=== PATIENT | female | born 1965 | race Caucasian/White ===

== ENCOUNTER → 2018-03-17 11:39 | Outpatient (CLI) | payer BC, SELFPAY ==
--- NOTE | 2018-03-17 11:43 | XR_ITS ---
XR ankle wt bearing RT min 3V HISTORY: Right ankle pain ORDERING PHYSICIAN: Kylie Connelly DPM PATIENT AGE: 52 years COMPARISON: None FINDINGS: No fracture or dislocation. No lytic or blastic change. There is normal mineralization.. The joint spaces are well-preserved. No significant degenerative/arthritic changes. No erosive changes evident. IMPRESSION: Negative ankle, no acute finding
--- NOTE | 2018-03-17 11:43 | XR_ITS ---
XR ankle wt bearing LT min 3V HISTORY: Ankle pain ORDERING PHYSICIAN: Kylie Connelly DPM PATIENT AGE: 52 years COMPARISON: None FINDINGS: No fracture or dislocation. No lytic or blastic change. There is normal mineralization.. The joint spaces are well-preserved. No significant degenerative/arthritic changes. No erosive changes evident. IMPRESSION: Negative ankle, no acute finding
--- NOTE | 2018-03-17 11:43 | XR_ITS ---
XR foot wt bearing RT 3V HISTORY: Anterior right foot pain ORDERING PHYSICIAN: Kylie Connelly DPM PATIENT AGE: 52 years FINDINGS: There are osteoarthritic changes of the first metatarsophalangeal joint with spurring. Spurring is also present dorsally at the navicular cuneiform joint. No fracture or dislocation. There is mild pes planus. No lytic or blastic change. 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
--- NOTE | 2018-03-17 11:43 | XR_ITS ---
XR foot wt bearing LT 3V HISTORY: Injury of foot pain ORDERING PHYSICIAN: Kylie Connelly DPM PATIENT AGE: 52 years COMPARISON: None FINDINGS: No fracture or dislocation. No lytic or blastic change. There is normal mineralization.. The joint spaces are well-preserved. No significant degenerative/arthritic changes. No erosive changes evident. Mild hypertrophic changes are present along the dorsal aspect of the navicular cuneiform joint. Small calcaneal spur. IMPRESSION: 1. No acute finding. 2. Small calcaneal spur with minimal hypertrophic change along the anterior the navicular cuneiform joint
== END ==
PROVIDERS: Visit Provider Podiatrist
DX: M79.672 Pain in left foot (principal); M79.671 Pain in right foot
CPT/HCPCS: 73610; 73630

== ENCOUNTER 2020-12-13 17:37 | Emergency (ER) | payer BC, SELFPAY ==
[2020-12-13 17:50] VITALS: BP 127/91; PULSE 104; RESP 20; TEMP 36.6; O2SAT 98; BMI 30.1
[2020-12-13 18:02] VITALS: BP 127/91; PULSE 104; RESP 20; TEMP 36.6; O2SAT 98
--- NOTE | 2020-12-13 18:07 | HMH.EDUTC ---
[facility] [place] Disposition Clinical Impression: Exposure to COVID-19 virus Disposition: Home, Self-Care Condition on Discharge: Good Instructions: Preventing the Spread of Coronavirus Discharge Instructions Referrals: Xavier Chambers [Primary Care Provider] - Time of Disposition: 18:08 Medical Decision Making - Francesco Inquiry Pt receiving controlled substance: No Vital Signs: 12/13/20 17:50 12/13/20 18:02 Temperature 97.8 F 97.8 F Temperature Source Oral Pulse Rate 104 H Pulse Rate [Right Brachial] 104 H Respiratory Rate 20 20 Blood Pressure 127/91 H Blood Pressure [Right Arm] 127/91 H Blood Pressure Mean [Right Arm] 103 Blood Pressure Source [Right Arm] Automatic Cuff Blood Pressure Position [Right Arm] Sitting 02 Sat by Pulse Oximetry 98 Oxygen Delivery Method Room Air Orders (Tests/Meds): ORDERS Category Date Time Status Covid-19 Nasal PCR ([facility]) Routine Lab 12/13/20 17:50 Received [facility] [place] HPI - General Stated complaint: Wants Covid test,have been exposed Time Seen by Provider: 12/13/20 18:07 Mode of Arrival: Ambulatory Source of Information: Patient Limitations: No Limitations Description of Symptoms (Recalled from Triage Doc. by RN): COVID TEST D/T EXPOSURE. DENIES SYMPTOMS HEENT Symptoms (Recalled from RN notes): No Resp Symptoms (Recalled from RN notes): No Skin Symptoms (Recalled from RN notes): No MS Symptoms (Recalled from RN notes): No Functional Status (Recalled from RN notes): WNL - History of Present Illness Provider Complaint: Exposed to COVID 7 days ago. Needs COVID test. No symptoms except mild runny nose. Onset (ago): day(s) (7) Relieving factors: none Exacerbating factors: none Associated symptoms: denies other symptoms Treatments prior to arrival: none - Related Data Home Medications Medication Instructions Recorded Confirmed bupropion HCl 150 mg tablet,12 hr 150 mg PO BID 03/17/18 sustained-release raloxifene 60 mg tablet 60 mg PO ONCE 03/17/18 Allergies Allergy/AdvReac Type Severity Reaction Status Date / Time No Known Allergies Allergy Verified 12/13/20 18:02 - Worker's Comp Is this a Worker's Comp case?: No Is this an [facility] Worker's Comp?: No [facility] History - Hepatitis A Screen Drug use history?: No High risk sexual behaviors?: No History of sexually transmitted infection?: No Currently employed?: No Childcare worker?: No Do you have indoor plumbing?: Yes Do you have electricity?: Yes Attestation statement:: This patient has been screened for Hepatitis A risk factors. I have reviewed the patient's past medical history: Yes Medical History: Denies:: Asthma, Cancer, Chronic Obstructive Pulmonary Disease (COPD), Diabetes Mellitus Type 1, Diabetes Mellitus Type 2, Hyperlipidemia, Hypertension Other Surgeries: Yes: Colonoscopy, Hysterectomy-Total (2009) - Social History Smoking Status: Never smoker # Packs/Day (cigarettes): 0 #Yrs smoked (if former smoker): 0 Alcohol Intake: never Alcohol Intake Frequency:: other Substance Use Type: denies use Occupational Status: other Family Hx:: Cancer, Diabetes, Hypertension ROS Obtained: Yes All systems reviewed & no additional complaints Physical Exam - General General appearance: alert, in no apparent distress - Head Head exam: normocephalic - Eye Eye exam: Present: PERRL - Respiratory Respiratory exam: Present: normal lung sounds bilaterally - Cardiovascular Cardiovascular exam: Present: regular rate, normal rhythm - Neurological Exam Neurological exam: Present: alert, oriented X3 - Psychiatric Psychiatric exam: Present: normal affect, normal mood - Skin Skin exam: Present: warm, dry, intact
--- NOTE | 2020-12-13 23:13 | PC.NURSE ---
Positive COVID result called from lab, Dr Carlos notified and results placed in UTC for f/u in AM
--- NOTE | 2020-12-14 09:23 | PC.NURSE ---
pt notified of positive covid result
== END 2020-12-13 18:13 | disposition home or self-care (01) ==
PROVIDERS: Emergency Provider Physician Assistant; PCP Internal Medicine
DX: U07.1 COVID-19 (principal)
CPT/HCPCS: 99202; G0463; U0003

== ENCOUNTER 2021-07-23 10:12 | Emergency (ER) | payer BC, SELFPAY ==
[2021-07-23 12:06] VITALS: PULSE 76; RESP 18; TEMP 36.9; O2SAT 98; BMI 29.2
[2021-07-23 12:16] VITALS: BP 121/88; PULSE 76; RESP 18; TEMP 36.9
--- NOTE | 2021-07-23 12:30 | HMH.EDUTC ---
[facility] [place] Clinical Impression: Exposure to COVID-19 virus Disposition: Home, Self-Care Condition on Discharge: Good Instructions: DI for COVID-19 (Suspected or Confirmed ), Preventing the Spread of Coronavirus Discharge Instructions Additional Instructions: Drink plenty of fluids. Take tylenol for pain or fever. Return if you begin to have difficulty breathing. Follow up with your regular doctor. GO TO THE ER FOR ANY WORSENING SYMPTOMS Quarantine until you know the results of your covid-19 test. If it is positive, the health department should call you and give you further instructions about your length of Quarantine and other things. Notify your school or workplace of your results and follow their instructions regarding return to work/school. Referrals: Xavier Chambers [Primary Care Provider] - Time of Disposition: 12:30 Medical Decision Making - Medical Records Medical records reviewed: No: I reviewed the patient's medical records. - Francesco Inquiry Pt receiving controlled substance: No Vital Signs: 07/23/21 12:06 07/23/21 12:16 Temperature 98.5 F 98.5 F Temperature Source Oral Pulse Rate 76 Pulse Rate [Left] 76 Respiratory Rate 18 18 Blood Pressure 121/88 02 Sat by Pulse Oximetry 98 [facility] [place] HPI - General Stated complaint: covid test/symptoms Time Seen by Provider: 07/23/21 12:15 Mode of Arrival: Ambulatory Source of Information: Patient Limitations: No Limitations Description of Symptoms (Recalled from Triage Doc. by RN): COVID TEST. ASYMPTOMATIC. UNKNOWN EXPOSURE. HEENT Symptoms (Recalled from RN notes): No Resp Symptoms (Recalled from RN notes): No Skin Symptoms (Recalled from RN notes): No MS Symptoms (Recalled from RN notes): No Functional Status (Recalled from RN notes): NA - History of Present Illness Provider Complaint: She is here needing a covid test. She denies any symptoms so far. - Related Data Home Medications Medication Instructions Recorded Confirmed bupropion HCl 150 mg tablet,12 hr 150 mg PO BID 03/17/18 sustained-release raloxifene 60 mg tablet 60 mg PO ONCE 03/17/18 Allergies Allergy/AdvReac Type Severity Reaction Status Date / Time No Known Allergies Allergy Verified 12/13/20 18:02 - Worker's Comp Is this a Worker's Comp case?: No [facility] History - Hepatitis A Screen Drug use history?: No High risk sexual behaviors?: No History of sexually transmitted infection?: No Currently employed?: No Childcare worker?: No Do you have indoor plumbing?: Yes Do you have electricity?: Yes Attestation statement:: This patient has been screened for Hepatitis A risk factors. I have reviewed the patient's past medical history: Yes Medical History: Denies:: Asthma, Cancer, Chronic Obstructive Pulmonary Disease (COPD), Diabetes Mellitus Type 1, Diabetes Mellitus Type 2, Hyperlipidemia, Hypertension Other Surgeries: Yes: Colonoscopy, Hysterectomy-Total (2009) - Social History Smoking Status: Never smoker # Packs/Day (cigarettes): 0 #Yrs smoked (if former smoker): 0 Alcohol Intake: never Alcohol Intake Frequency:: other Substance Use Type: denies use Occupational Status: other Family Hx:: Cancer, Diabetes, Hypertension ROS Obtained: Yes All systems reviewed & no additional complaints - Constitutional Constitutional: Reports system reviewed and no additional complaints, except as docu - Eyes Eyes: Reports system reviewed and no additional complaints, except as docu - ENT Ears, Nose, Mouth, and Throat: Reports system reviewed and no additional complaints, except as docu - Cardiovascular Cardiovascular: Reports system reviewed and no additional complaints, except as docu - Respiratory Respiratory: Reports system reviewed and no additional complaints, except as docu - Gastrointestinal Gastrointestingal: Reports: system reviewed and no additional complaints, except as docu Physical Exam - General General appearance: al
== END 2021-07-23 12:44 | disposition home or self-care (01) ==
PROVIDERS: Emergency Provider Nurse Practitioner Family; PCP Internal Medicine
DX: Z20.822 Contact with and (suspected) exposure to COVID-19 (principal)
CPT/HCPCS: 99202; G0463; U0003

== ENCOUNTER → 2021-12-07 10:22 | Outpatient (CLI) | payer BC, SELFPAY | PROVIDERS: PCP Internal Medicine; Visit Provider Internal Medicine | DX: Z20.822 Contact with and (suspected) exposure to COVID-19 (principal) | CPT/HCPCS: C9803; U0003; U0005 ==

== ENCOUNTER → 2021-12-08 11:18 | Outpatient (CLI) | payer BC, SELFPAY ==
--- NOTE | 2021-12-08 11:34 | XR_ITS ---
FINAL REPORT CLINICAL HISTORY: RUQ PAIN, fever, chills FINDINGS: Chest: A single view of the chest demonstrates mild left lung base atelectasis or scarring. Abdomen: Flat and upright views of the abdomen demonstrate a nonobstructive bowel gas pattern. There is a moderate amount of retained stool. There is no free air. IMPRESSION: Moderate retained stool. Reviewed, Interpreted and Dictated by Michael Garcia III, MD Transcribed by Demetrius Sarkar Authenticated by Michael Garcia III, MD on 12/08/2021 12:28:[address] [facility]
[2021-12-08 12:10] LABS: Basophils # 0.1 K/mm3 (0-0.2); Basophils % 0.6 % (0.1-2.0); Eosinophils % 0.2 % (0.1-12.0); Hematocrit 34.3 % (37.0-47.0); Hemoglobin 10.9 g/dL (12.2-16.2); Lymphocytes % 11.4 % (10-50); Mean Corpuscular HGB Conc 31.7 g/dL (31.8-35.4); Mean Corpuscular Volume 88.5 fl (81-99); Monocytes # 0.5 K/mm3 (0.1-1.0); Neutrophils # 7.4 K/mm3 (1.8-7.8); Neutrophils % 81.8 % (37.0-80.0); Platelet Count 209 K/mm3 (142-424); Red Blood Count 3.88 M/mm3 (4.20-5.40); Red Cell Distribution Width 17.4 % (11.5-17.5)
[2021-12-08 12:17] LABS: Chloride 92 mmol/L (98-107); Sodium 135 mmol/L (136-145)
[2021-12-08 12:18] LABS: Potassium 3.2 mmoL/L (3.5-5.1)
[2021-12-08 12:20] LABS: Alanine Aminotransferase 14 U/L (12-78); Albumin Level 3.6 g/dl (3.5-5.0); Albumin/Globulin Ratio 1.3 (1.1-1.8); Alkaline Phosphatase 78 U/L (38-126); Anion Gap 12.2 mEq/L (5-15); Aspartate Amino Transferase 27 U/L (14-36); Bilirubin,Total 0.6 mg/dl (0.2-1.3); Blood Urea Nitrogen 17 mg/dl (7-17); Calcium 8.4 mg/dl (8.4-10.2); Carbon Dioxide 34 mmol/L (22.0-30.0); Estimated Glomerular Filt Rate 74 ml/min (>60); GFR (African American) 90 ML/MIN (>60); Globulin 2.8 g/dL (1.3-3.2); Glucose 90 mg/dl (74-100); Total Protein,Serum 6.4 g/dl (6.3-8.2)
[2021-12-08 12:21] LABS: Amylase < 30 U/L (30-110)
== END ==
PROVIDERS: Visit Provider Internal Medicine
DX: R10.11 Right upper quadrant pain (principal); R50.9 Fever, unspecified
CPT/HCPCS: 36415; 74021; 80053; 82150; 85025; 87275; 87276

== ENCOUNTER 2022-04-09 20:40 | Emergency (ER) | payer BC, SELFPAY ==
[2022-04-09 21:06] VITALS: BP 148/77; PULSE 108; RESP 19; TEMP 36.9; O2SAT 98; BMI 26.8
[2022-04-09 21:12] LABS: Apearance,Urine Clear (Clear); Bilirubin,Urine Negative (Negative); Blood, Urine 1+ (Negative); Color,Urine Yellow (Yellow); Glucose,Urine (UA) Negative (Negative); Ketones,Urine Negative (Negative); PH,Urine 7.5 (5.0-8.5); Protein,Urine Negative (Negative); UTC Leukocyte Esterase,Urine Trace (Negative); Urobilinogen,Urine 0.2 EU/dl (0.2)
[2022-04-09 21:13] LABS: UTC Nitrate,Urine Negative (Negative)
--- NOTE | 2022-04-09 21:20 | HMH.EDUTC ---
[facility] [place] Disposition Clinical Impression: Sinusitis Qualifiers: Sinusitis location: unspecified location Chronicity: unspecified Qualified Code(s): J32.9 - Chronic sinusitis, unspecified UTI (urinary tract infection) Qualifiers: Urinary tract infection type: site unspecified Hematuria presence: with hematuria Qualified Code(s): N39.0 - Urinary tract infection, site not specified Disposition: Home, Self-Care Condition on Discharge: Good Instructions: Sinusitis, DI for Sinusitis, DI for Urinary Tract Infection (UTI) Additional Instructions: *Increase fluids. Water not Soda or Tea *Start antibiotic immediately and be sure to take as ordered for the FULL length of time although you should start to see improvement over the next 48 hours *Be SURE to follow up anytime for new or worsening symptoms with your family doctor. AND in 48 hours for urine culture results with your family doctor, if you do not have a doctor then you may call back to the [facility] for urine culture results and further treatment. We do recommend that you choose and establish care with a Primary Care Physician. AND follow up with them in 10-14 days to repeat UA to ensure infection is resolved and blood no longer present *Be sure to let your PCP know that we sent urine cultures from the [facility] so they can follow up to ensure that you area the on the correct antibiotic Call your doctor office and make appointment for 48 hours (2 days from today) to follow up and get the results of your urine culture and further treatment *Monitor Temp, Over the counter Motrin or Tylenol as directed/as needed Tylenol every 4 hours and Motrin every 6 hours (as long as your family doctor has told you that you can take it) for fever or pain. and straight to ER if unable to lower temp less than 101.0 after medication given *Warm salt water gargles may help to soothe the throat *Throat Lozenges *Warm fluids like tea with honey may help to soothe the throat *Sleep elevated *Humidifier/Vaporizer Follow up IMMEDIATELY for new or worsening symptoms or no Noticeable improvement over the next 48-72 hours. 911 for difficulty breathing or swallowing Prescriptions: Cefdinir [Omnicef 300mg Capsule] 300 mg PO BID #20 cap Transmission Status: Received by [facility] Referrals: Xavier Chambers MD [Primary Care Provider] - As needed Time of Disposition: 21:35 Medical Decision Making - Francesco Inquiry Pt receiving controlled substance: No Francesco was queried for this patient: No Vital Signs: 04/09/22 21:06 Temperature 98.5 F Temperature Source Oral Pulse Rate [Left] 108 H Respiratory Rate 19 Blood Pressure [Right Arm] 148/77 H Blood Pressure Mean [Right Arm] 100 02 Sat by Pulse Oximetry 98 - Lab Data Lab results reviewed: Yes: I reviewed the patient's lab results. Lab Results 04/09/22 20:53: Urine Color Yellow, Urine Appearance Clear, Urine pH 7.5, Ur Specific Hamlet 1.020, Urine Protein Negative, Urine Glucose (UA) Negative, Urine Ketones Negative, Urine Blood 1+, Urine Nitrate Negative, Urine Bilirubin Negative, Urine Urobilinogen 0.2, Ur Leukocyte Esterase Trace Orders (Tests/Meds): ED MEDICATIONS Discontinued Medications Generic Name Dose Route Start Last Admin Trade Name Freq PRN Reason Stop Dose Admin Ceftriaxone Sodium 1 gm 04/09/22 21:37 04/09/22 21:38 Ceftriaxone 1gm Vial IM 04/09/22 21:38 1 gm ONCE ONE Administration Lidocaine HCl 0 ml 04/09/22 21:37 04/09/22 21:38 Lidocaine 1% 5ml Pf Vial IM 04/09/22 21:38 2 ml ONCE ONE Administration ORDERS Category Date Time Status Urine Culture Stat Micro 04/09/22 21:10 Ordered [facility] [place] HPI - General Stated complaint: poss UTI Time Seen by Provider: 04/09/22 21:20 Mode of Arrival: Ambulatory Source of Information: Patient Limitations: No Limitations Description of Symptoms (Recalled from Triage Doc. by RN): pt c/o a MAYFIELD, sore throat, cough, and pain. HEENT Symptoms (Recalled from R
[2022-04-09 21:43] VITALS: BP 148/77; PULSE 108; RESP 19; TEMP 36.9
== END 2022-04-09 21:45 | disposition home or self-care (01) ==
PROVIDERS: Emergency Provider Nurse Practitioner; PCP Internal Medicine
DX: J32.9 Chronic sinusitis, unspecified (principal); N39.0 Urinary tract infection, site not specified; J02.9 Acute pharyngitis, unspecified; R51.9 Headache, unspecified; Z82.49 Family history of ischemic heart disease and other diseases of the circulatory system; Z83.3 Family history of diabetes mellitus
CPT/HCPCS: 81003; 87086; 96372; 99213; G0463; J0696

== ENCOUNTER → 2022-05-13 16:34 | Outpatient (CLI) | payer BC, SELFPAY | PROVIDERS: PCP Internal Medicine; Visit Provider Internal Medicine | DX: U07.1 COVID-19 (principal) | CPT/HCPCS: C9803; U0003; U0005 ==

== ENCOUNTER 2023-11-11 16:28 | Emergency (ER) | payer BC, SELFPAY ==
[2023-11-11 16:50] VITALS: BP 101/60; PULSE 135; RESP 21; TEMP 37.8; O2SAT 96; BMI 26.2
--- NOTE | 2023-11-11 16:53 | EXP.UTC ---
Discharge Plan Disposition Patient Disposition: Home, Self-Care Condition: Good Prescriptions Prescriptions: New ondansetron 4 mg Tablet,Disintegrating 4 mg PO Q8H PRN (Reason: Nausea) Qty: 12 0RF phenazopyridine [Pyridium] 200 mg tablet 200 mg PO Q8H 2 Days Qty: 6 0RF cephalexin 500 mg capsule 500 mg PO QID 10 Days Qty: 40 0RF No Action bupropion HCl 150 mg tablet extended release 12 hr 150 mg PO BID raloxifene [Evista] 60 mg tablet 60 mg PO ONCE cefdinir 300 MG capsule 300 mg PO BID Qty: 20 0RF Referrals Follow up/Referrals: Xavier Chambers MD [Primary Care Provider] - See instructions Activity Restrictions/Add. Instructions Additional Instructions/Restrictions: Drink plenty of fluids. Take tylenol or ibuprofen for pain or fever. Take the medications as directed. Follow up with your regular doctor. GO TO THE ER FOR ANY WORSENING SYMPTOMS The pyridium will make your urine turn orange, this is an expected side effect. It will stain your clothes if it comes into contact with them. We will culture the urine. That will tell what bacteria is causing your infection and which antibiotics will treat it best. Sometimes the first antibiotic we prescribe turns out to not work against different bacteria. So, make sure you follow up within 3 days if you are not getting better. Clinical Impressions Clinical Impression: Strep throat, UTI (urinary tract infection) Instructions Patient Instructions: DI for Strep Throat, DI for Urinary Tract Infection (UTI) Discharge ED Provider: Waldo Gonzalez [facility] General Stated complaint: poss UTI, back pain, [place] Time Seen by Provider: 11/11/23 16:53 History of Present Illness Provider Complaint: She states that for the past 2 days she has been having a worsening sore throat. She also has been having dysuria and low back pain for the past 1 day. Related Data Home Medications Medication Instructions Recorded Confirmed bupropion HCl 150 mg tablet,12 hr 150 mg PO BID 03/17/18 11/11/23 sustained-release raloxifene 60 mg tablet (Evista) 60 mg PO ONCE 03/17/18 11/11/23 Previous Rx's Medication Instructions Recorded cefdinir 300 mg capsule 300 mg PO BID #20 caps 04/09/22 cephalexin 500 mg capsule 500 mg PO QID 10 days #40 caps 11/11/23 ondansetron 4 mg disintegrating 4 mg PO Q8H PRN Nausea #12 tabs 11/11/23 tablet phenazopyridine 200 mg tablet 200 mg PO Q8H 2 days #6 tabs 11/11/23 (Pyridium) Allergies Allergy/AdvReac Type Severity Reaction Status Date / Time No Known Allergies Allergy Verified 12/13/20 18:02 [facility] Disclaimer: The information contained in this section may have been updated after the patient was seen, as this information can be updated by other users. Medical History (Updated 11/11/23 @ 17:26 by Waldo Gonzalez APRN) Depression History of anemia Kidney stone Urinary tract infection Surgical History (Updated 11/11/23 @ 17:10 by Rhonda Alves RN) History of hysterectomy History of tubal ligation Social History Smoking Status: Never smoker alcohol intake: never substance use type: denies use current occupational status: other Travel in the last 8 weeks: None ROS Obtained: Yes All systems reviewed & no additional complaints except as documented Constitutional Constitutional: Reports poor appetite Eyes Eyes: Reports system reviewed and no additional complaints, except as documented ENT Ears, Nose, Mouth, and Throat: Reports as per HPI Cardiovascular Cardiovascular: Reports system reviewed and no additional complaints, except as documented and Denies chest pain Respiratory Respiratory: Denies shortness of breath, Denies chest congestion, Reports cough, Denies stridor and Denies wheezing Gastrointestinal Gastrointestingal: Reports system reviewed and no additional complaints, except as documented; Denies abdominal pain, diarrhea or vomiting Genitourinary Fema
[2023-11-11 17:04] LABS: UTC Influenza A Antigen Negative (Negative); UTC Influenza B Antigen Negative (Negative); UTC Strep Screen (Rapid) Positive (Negative)
[2023-11-11 17:45] VITALS: BP 101/60; PULSE 135; RESP 21; TEMP 37.8; O2SAT 96
[2023-11-11 18:53] LABS: Apearance,Urine Clear (Clear); Bilirubin,Urine Negative (Negative); Blood, Urine Negative (Negative); Color,Urine Dark Yellow (Yellow); Glucose,Urine (UA) Negative (Negative); Ketones,Urine Negative (Negative); PH,Urine 5.5 (5.0-8.5); Protein,Urine Negative (Negative); Specific Gravity, Urine >= 1.030 (1.005-1.030); UTC Leukocyte Esterase,Urine 1+ (Negative); UTC Nitrate,Urine Negative (Negative); Urobilinogen,Urine 0.2 EU/dl (0.2)
== END 2023-11-11 17:48 | disposition home or self-care (01) ==
PROVIDERS: Emergency Provider Nurse Practitioner Family; PCP Internal Medicine
DX: J02.0 Streptococcal pharyngitis (principal); N39.0 Urinary tract infection, site not specified; B96.89 Other specified bacterial agents as the cause of diseases classified elsewhere; R07.0 Pain in throat; M54.59 Other low back pain; R51.9 Headache, unspecified
CPT/HCPCS: 81003; 87086; 87635; 87804; 87880; 96372; 99212; 99214; G0463; J0696

== ENCOUNTER 2023-12-20 12:03 | Outpatient (CLI) | payer BC, SELFPAY ==
[2023-12-24 00:05] LABS: Atopobium vaginae Low - 0 Score (.); BVAB2 Low - 0 Score (.); Candida albicans NAA Negative (Negative); Candida glabrata Negative (Negative); Chlamydia Trachomatis NAA Negative (Negative); HSV 1 NAA Negative (Negative); HSV 2 NAA Negative (Negative); Megasphaera 1 Low - 0 Score (.); Neisseria gonorrhoeae NAA Negative (Negative); Trich vag NAA Negative (Negative)
[2023-12-28 10:31] LABS: Atopobium vaginae 0
[2023-12-28 10:32] LABS: Bacterial Vaginosis Associated 0; Candida albicans, NAA 0; Candida glabrata, NAA 0; Megasphaera 1 0
[2023-12-28 22:11] LABS: Mycoplasma genitalium NAA Negative (Negative); Mycoplasma hominis NAA Negative (Negative); Ureaplasma spp NAA Negative (Negative)
== END 2023-12-20 23:59 ==
LOC: LAB.DROPOF 12:03
PROVIDERS: PCP Internal Medicine; Visit Provider Urology
DX: N94.19 Other specified dyspareunia (principal)
CPT/HCPCS: 87491; 87529; 87563; 87591; 87661; 87798; 87801

== ENCOUNTER 2023-12-24 14:15 | Outpatient (CLI) | payer BC, SELFPAY ==
--- NOTE | 2023-12-24 14:15 | XR_ITS ---
FINAL REPORT CLINICAL HISTORY: UTI COMPARISON: 12/08/2021 FINDINGS: The visualized intestinal gas pattern appears unremarkable without evidence to suggest obstruction. No abnormal radiopacities are seen in the abdomen. IMPRESSION: No acute findings. Reviewed, Interpreted and Dictated by Jan Moody MD Transcribed by Marianna Moctezuma Authenticated and [facility]
--- NOTE | 2023-12-24 14:15 | US_ITS ---
FINAL REPORT TECHNIQUE: Ultrasound images of the kidneys and bladder were obtained. CLINICAL HISTORY: . FINDINGS: The right kidney measures 10.5 cm in length. It is normal in echogenicity. There is no hydronephrosis. The left kidney measures 11.3 cm in length. It is normal in echogenicity. There is no hydronephrosis. IMPRESSION: Unremarkable renal ultrasound. Reviewed, Interpreted and Dictated by Jan Moody MD Transcribed by Marianna Moctezuma Authenticated and . [facility]
== END 2023-12-24 23:59 ==
LOC: RAD 14:15
PROVIDERS: PCP Internal Medicine; Visit Provider Urology
DX: N39.0 Urinary tract infection, site not specified (principal)
CPT/HCPCS: 74018; 76770

== ENCOUNTER 2024-01-10 16:22 | Outpatient (CLI) | payer BC, SELFPAY ==
[2024-01-10 16:32] LABS: Microscopic, Urine URINE MICROSCOPIC (MICROSCOPIC)
[2024-01-10 16:52] LABS: Appearance,Urine CLEAR (Clear); Bilirubin,Urine Negative (Negative); Blood, Urine Negative (Negative); Color,Urine YELLOW (Yellow); Glucose,Urine (UA) Negative (Negative); Ketones,Urine Negative (Negative); Leukocyte Esterase,Urine TRACE (Negative); Nitrate,Urine POSITIVE (Negative); Protein,Urine Negative (Negative); Specific Gravity, Urine 1.015 (1.005-1.030); Urobilinogen,Urine 0.2 EU/dl (0.2)
[2024-01-10 17:08] LABS: Bacteria,Urine 4+ /lpf; Squamous Epithelial Cell,Urine Occasional #/hpf (0-5); WBC,Urine Occasional #/hpf (0-3)
== END 2024-01-10 23:59 ==
LOC: LAB 16:22
PROVIDERS: PCP Internal Medicine; Visit Provider Urology
DX: N39.0 Urinary tract infection, site not specified (principal); R31.9 Hematuria, unspecified; B96.29 Other Escherichia coli [E. coli] as the cause of diseases classified elsewhere
CPT/HCPCS: 81001; 87086

== ENCOUNTER 2024-04-13 13:17 | Outpatient (CLI) | payer BC, SELFPAY ==
--- NOTE | 2024-04-13 13:20 | XR_ITS ---
FINAL REPORT CLINICAL HISTORY: left shoulder pain FINDINGS: LEFT SHOULDER 3 views of the left shoulder were obtained. There is no acute fracture or dislocation. There is moderate glenohumeral joint space narrowing. Subchondral sclerosis is seen of the bony glenoid with flattening and degenerative cyst formation consistent with moderately advanced changes of osteoarthritis. IMPRESSION: No acute bony abnormality Reviewed, Interpreted and Dictated by Xavier Zarate MD Transcribed by Emerita Kiser Authenticated and [facility]
== END 2024-04-13 23:59 | disposition home or self-care (01) ==
LOC: RAD 13:17
PROVIDERS: PCP Internal Medicine; Visit Provider Orthopaedic Surgery
DX: M25.512 Pain in left shoulder (principal)
CPT/HCPCS: 73030

== ENCOUNTER 2024-04-18 07:20 | Outpatient (CLI) | payer BC, SELFPAY ==
--- NOTE | 2024-04-18 07:28 | MR_ITS ---
FINAL REPORT CLINICAL HISTORY: LT shoulder Pain FINDINGS: Multi planar MR imaging of the left shoulder was performed. The supraspinatus tendon appears intact. There is no abnormal fluid in the subacromial/subdeltoid bursa. There are tears of the anterior and posterior glenoid labrum. The biceps tendon appears intact. There are moderate hypertrophic changes of the acromioclavicular joint. There is advanced narrowing of the glenohumeral joint with moderate osteophyte formation. There is a prominent degenerative cyst and osteochondral lesion at the articular surface of the bony glenoid. IMPRESSION: Advanced changes of osteoarthritis at the glenohumeral joint with prominent underlying degenerative cysts formation in the bony glenoid. Tears of the anterior posterior glenoid labrum. Reviewed, Interpreted and Dictated by Xavier Zarate MD Transcribed by Emerita Kiser Authenticated and . [facility]
== END 2024-04-18 23:59 | disposition home or self-care (01) ==
LOC: RAD 07:21
PROVIDERS: PCP Internal Medicine; Visit Provider Physician Assistant
DX: M25.512 Pain in left shoulder (principal); S46.002A Unspecified injury of muscle(s) and tendon(s) of the rotator cuff of left shoulder, initial encounter
CPT/HCPCS: 73221

== ENCOUNTER 2025-02-16 19:50 | Outpatient (CLI) | payer BC, SELFPAY | END 2025-02-16 23:59 | disposition home or self-care (01) | LOC: LAB.DROPOF 02-19 12:33 | PROVIDERS: PCP Nurse Practitioner; Visit Provider Nurse Practitioner | DX: R35.0 Frequency of micturition (principal) | CPT/HCPCS: 87086; 87088; 87186 ==

== ENCOUNTER 2025-02-17 15:00 | Outpatient (CLI) | payer BC, SELFPAY | END 2025-02-17 23:59 | disposition home or self-care (01) | LOC: LAB.DROPOF 02-22 10:38 | PROVIDERS: PCP Nurse Practitioner; Visit Provider Nurse Practitioner | DX: J32.9 Chronic sinusitis, unspecified (principal); N39.0 Urinary tract infection, site not specified; R31.9 Hematuria, unspecified | CPT/HCPCS: 87086; 87088; 87186 ==

== ENCOUNTER 2025-08-08 10:49 | Outpatient (CLI) | payer BC, SELFPAY ==
--- NOTE | 2025-08-08 10:56 | XR_ITS ---
FINAL REPORT CLINICAL HISTORY: left shoulder pain COMPARISON: None FINDINGS: Two views of the left shoulder show no evidence of acute displaced fracture or dislocation of the visualized bony architecture. There are moderate degenerative changes. IMPRESSION: Moderate degenerative changes without acute bony abnormality. Reviewed, Interpreted and Dictated by Jan Moody MD Transcribed by Ailyn Viramontes Authenticated and [facility]
--- OUTSIDE RECORDS SUMMARY | 2025-08-08 10:58 | XMS_ITS | Clinical Summary ---
Author Organization [employer] [facility] Address [address] [place] [address] Care Team Providers Care Block Tester Name Role Phone Xavier Chambers MD Primary Care Provider [phone] Allergies No known active allergies Medications No known medications Family History Medical History Relation Name Comments Breast cancer Maternal Aunt pt states 40' s Breast cancer Maternal Grandmother Breast cancer Mother 40's Ovarian cancer Neg Hx Relation Name Status Comments Maternal Aunt Maternal Grandmother Mother Social History Tobacco Use Types Packs/Day Years Used Date Smoking Tobacco: Never Assessed Comments No Sex and Gender Information Value Date Recorded Sex Assigned at Not on file Legal Sex Female 12:46 PM EDT Gender Identity Not on file Sexual Orientation Not on file Last Filed Vital Signs Vital Sign Reading Time Taken Comments Blood Pressure - - Pulse - - Temperature - - Respiratory Rate - - Oxygen Saturation - - Inhaled Oxygen Concentration - - Weight 69.4 kg (153 lb) 10/31/2024 12:15 PM EST Height 160 cm (5' 3 ) 10/31/2024 12:15 PM EST Body Mass Index 27.1 10/31/2024 12:15 PM EST Plan of Treatment Health Maintenance Due Date Last Done Comments ANNUAL PHYSICAL 1965 Annual Gynecologic Pelvic an d Breast Exam 1966 HEPATITIS C SCREENING 1966 COLOGUARD 2011 COLON CANCER SCREENING 5 YEA R SIGMOIDOSCOPY 2011 CT COLONOGRAPHY 2011 FECAL OCCULT BLOOD TEST 2011 FIT Testing (1 year) 2011 Pneumococcal Vaccine 50+ (1 of 1 - PCV) 2016 ZOSTER VACCINE (1 of 2) 2016 COVID-19 Vaccine (1 - 2023-2 5 season) 2025 INFLUENZA VACCINE 08/22/2025 08/26/2023, , 10/30/2019, Additional history exists TDAP/TD VACCINES (3 - Td or Tdap) 09/07/2026 016, 04/10/2015 COLONOSCOPY 02/01/2027 02/01/2017 COLORECTAL CANCER SCREENING 02/01/2027 MAMMOGRAM 03/05/2027 03/05/2025, 01/20, 02/04/2023, Additional history exists Procedures Procedure Name Priority Date/Time Associated Diagnosis Comments MAMMO SCREENING DIGITAL TOMOSYNTHESIS BILATERAL W CAD Routine 03/05/2025 1:57 PM EDT Visit for screening mammogram from Last 3 Months or Most Recently Relevant to Health Maintenance Results * Mammo Screening Digital Tomosynthesis Bilateral With CAD (03/05/2025 1:57 PM EDT) Anatomical Region Laterality Modality Breast N/A Mammography 03/08/2025 2:52 PM EDT Impressions 03/08/2025 2:57 PM EDT No mammographic findings suspicious for malignancy. RECOMMENDATION: 1. Continue annual screening mammography. 2. Annual high-risk screening breast MRI imaging is also recommended due to the patient's known BRCA gene mutation. Her last breast MRI study was performed on 10/31/2024. BI-RADS CATEGORY 1, NEGATIVE. CAD was utilized. The standard false-negative rate of mammography is between 10% and 25%. Complex patterns or increased breast density will markedly elevate the false-negative rate of mammography. A letter, in lay terminology, with the results of this exam will be mailed to the patient. 03/08/2025 2:[address] Chinyere Bob MD on Narrative 03/08/2025 2:57 PM EDT BILATERAL SCREENING MAMMOGRAM WITH TOMOSYNTHESIS: HISTORY: 59-year-old patient with no personal history of breast cancer and no new breast complaints. Her mother, maternal grandmother, and maternal aunt were diagnosed with breast cancer. The patient has a known BRCA gene mutation. TECHNIQUE: Bilateral CC and MLO low dose, full field digital mammographic images were obtained with tomosynthesis. COMPARISON: 02/08/2024, 02/04/2023, 10/14/2021, 09/10/2020, 07/18/2019, 05/11/2018, 04/21/2017, 04/15/2016, 04/08/2015 FINDINGS: There are scattered areas of fibroglandular density. The fibroglandular pattern is stable. There are no suspicious masses, worrisome calcifications, nonsurgical areas of architectural distortion, or other secondary signs of malignancy. 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 us Jasmine Jeffrey MD IMG MAMMOGRAPHY ORDERABLES Final Result from Last 3 Months or Most Recently Relevant to Health Maintenance Insurance [employer] Care Teams Block Tester Relationship Specialty Start Date End Date Xavier Chambers MD [address] [facility] [address] [facility] [id number] PCP - General 04/15/16
== END 2025-08-08 23:59 | disposition home or self-care (01) ==
LOC: RAD 10:56
PROVIDERS: Visit Provider Physician Assistant
DX: M19.012 Primary osteoarthritis, left shoulder (principal)
CPT/HCPCS: 73030

== ENCOUNTER 2025-11-11 14:30 | Outpatient (CLI) | payer BC, SELFPAY ==
--- OUTSIDE RECORDS SUMMARY | 2025-11-07 09:28 | XMS_ITS | Encounter Summary ---
Author Organization [facility] Address [address] [place] [address] Care Team Providers Care Rounding Machine Tender Name Role Phone Xavier Chambers MD Primary Care Provider [phone] Reason for Referral * MRI/CAT/PET Scan (Routine) - Closed Specialty Diagnoses / Procedures Referred By María jensen Referred To Contact Radiology Diagnoses Encounter for screening mammogram for malignant neoplasm of breast Procedures MRI Breast Bilateral Screening With & Without Contrast CHG MRI BREAST WITHOUT&WITH CONTRAST W/CAD BILATERAL Jasmine Jeffrey MD [address] [place] [address] [place] [address] Phone: tel: fax: Referral ID Status Reason Start Date Expiration Date Visits Re quested Visits Authorized [id number] Closed 08/31/2025 11/30/2026 1 1 Reason for Visit * MRI/CAT/PET Scan (Routine) - Closed Specialty Diagnoses / Procedures Referred By María jensen Referred To Contact Radiology Diagnoses Encounter for screening mammogram for malignant neoplasm of breast Procedures MRI Breast Bilateral Screening With & Without Contrast CHG MRI BREAST WITHOUT&WITH CONTRAST W/CAD BILATERAL Jasmine Jeffrey MD [address] [place] [address] [place] [address] Phone: tel: fax: Referral ID Status Reason Start Date Expiration Date Visits Re quested Visits Authorized [id number] Closed 08/31/2025 11/30/2026 1 1 Encounter Details Date Type Department Care Team (Latest Contact Info) Description 11/07/2025 9:28 AM EST - 11/07/2025 11:59 PM EST Hospital Encounter [facility] MRI AT [address] [id number] Jasmine Jeffrey MD [address] [place] [address] [place] [address] Encounter for screening mammogram for malignant neoplasm of breast Discharge Disposition: Home or Self Care Social History Tobacco Use Types Packs/Day Years Used Date Smoking Tobacco: Never Assessed Comments No Sex and Gender Information Value Date Recorded Sex Assigned at Not on file Legal Sex Female 12:46 PM EDT Gender Identity Not on file Sexual Orientation Not on file documented as of this encounter Plan of Treatment Pending Results Name Type Priority Associated Diagnoses Date /Time MRI Breast Bilateral Screening With & Without Contrast Imaging Routine Encounter for screening mammogram for malignant neoplasm of breast 11/07/2025 11:02 AM EST Scheduled Orders Name Type Priority Associated Diagnoses Orde r Schedule MRI Breast Bilateral Screening With & Without Contrast Imaging Routine Encounter for screening mammogram for malignant neoplasm of breast Once for 1 Occurrences starting 11/07/2025 until 11/07/2025 documented as of this encounter Visit Diagnoses Diagnosis Encounter for screening mammogram for malignant neoplasm of breast documented in this encounter Administered Medications Inactive Administered Medications - up to 3 most recent administrations Medication Order MAR Action Action Date Dose Rate Site gadobenate dimeglumine (MULTIHANCE) injection 13 mL 13 mL, Intravenous, Once in Imaging, On Wed11/07/25 at 1033, For 1 dose, Vesicant; admin as rapid bolus; flush with 5 mL NS after admin or 20 mL for renal or aortoiliofemoral vasculature Given 11/07/2025 11:02 AM EST 13 mL documented in this encounter Care Teams Rounding Machine Tender Relationship Specialty Start Date End Date Xavier Chambers MD [address] [place] [address] [place] [id number] PCP - General 04/15/16 documented as of this encounter
--- OUTSIDE RECORDS SUMMARY | 2025-11-12 10:38 | XMS_ITS | Clinical Summary ---
Author Organization [facility] Address [address] [place] [address] Care Team Providers Care Software Engineering Supervisor Name Role Phone Xavier Chambers MD Primary Care Provider [phone] Allergies No known active allergies Medications No known medications Encounters Date Type Department Care Team Description 11/07/2025 9:28 AM EST - 11/07/2025 11:59 PM EST Hospital Encounter [facility] AT [address] [phone] Jasmine Jeffrey MD Encounter for screening mammogram for malignant neoplasm of breast Discharge Disposition: Home or Self Care 11/07/2025 Travel from Last 3 Months Family History Medical History Relation Name Comments [...] - Inhaled Oxygen Concentration - - Weight 65.8 kg (145 lb) 11/07/2025 10:05 AM EST Height 160 cm (5' 3 ) 10/31/2024 12:15 PM EST Body Mass Index 25.69 10/31/2024 12:15 PM EST Plan of Treatment [...] 2016 ZOSTER VACCINE (1 of 2) 2016 INFLUENZA VACCINE 06/22/2025 08/26/2023, , 10/30/2019, Additional history exists TDAP/TD VACCINES (2 - Td or Tdap) 09/07/2026 016, 04/10/2015 [...] Most Recently Relevant to Health Maintenance Insurance [employer] Member Subscriber Plan / Payer (Ef fective 2014-Present) Name:Key Cisse Relation to Subscriber:Self Name:Key Cisse Payer ID:[id number] (NAIC) Type:Not on file Address: [facility] [id number] [place] [id number] Care Teams Software Engineering Supervisor Relationship Specialty Start Date End Date Xavier Chambers MD [address] [place] [address] [address] PCP - General 04/15/16
--- OUTSIDE RECORDS SUMMARY | 2025-11-12 10:38 | XMS_ITS | Encounter Summary ---
Author Organization [facility] Address [address] [place] [address] Care Team Providers Care Hand Binder Stripper Name Role Phone Xavier Chambers MD Primary Care Provider [phone] Encounter Details Date Type Department Care Team (Latest Contact Info) Description 11/07/2025 Travel Social History Tobacco Use Types Packs/Day Years Used Date Smoking Tobacco: Never Assessed Comments No Sex and Gender Information Value Date Recorded Sex Assigned at Not on file Legal Sex Female 12:46 PM EDT Gender Identity Not on file Sexual Orientation Not on file documented as of this encounter Plan of Treatment Not on file documented as of this encounter Visit Diagnoses Not on filedocumented in this encounter Care Teams Hand Binder Stripper Relationship Specialty Start Date End Date Xavier Chambers MD [address] [facility] [address] [place] [id number] PCP - General 04/15/16 documented as of this encounter
== END 2025-11-11 23:59 | disposition home or self-care (01) ==
LOC: LAB.DROPOF 11-12 10:29
PROVIDERS: PCP Internal Medicine; Visit Provider Nurse Practitioner
DX: N39.0 Urinary tract infection, site not specified (principal)
CPT/HCPCS: 87086